=== PATIENT | male | born 1980 | race Caucasian/White ===

== ENCOUNTER → 2017-09-30 | Outpatient (CLI) | payer BC ==
[2017-09-30 18:28] LABS: HEMATOCRIT 43.3 % (42.0-52.0); HEMOGLOBIN 14.3 g/dL (13.5-18.0); MEAN CELL VOLUME 85 fl (78-100); MEAN CORPUSCULAR HEMOGLOBIN 28 pg (27-31); MEAN CORPUSCULAR HGB CONC 33 g/dL (33-37); MEAN PLATELET VOLUME 9.7 fl (7.4-10.4); PLATELET COUNT 191 K/mm3 (130-400); RED BLOOD COUNT 5.07 M/mm3 (4.20-5.60); RED CELL DISTRIBUTION WIDTH 15.1 % (11.5-14.5); WHITE BLOOD COUNT 10.4 K/mm3 (4.8-10.8)
[2017-09-30 18:36] LABS: ALBUMIN 4.6 g/dL (3.5-5.0); BUN/CREATININE RATIO 16.8 (6.0-26.0); CALCIUM 9.2 mg/dL (8.4-10.2); POTASSIUM 3.7 mmol/L (3.6-5.0); TOTAL BILIRUBIN 0.5 mg/dL (0.2-1.3); TOTAL PROTEIN 7.8 g/dL (6.3-8.2)
[2017-09-30 18:48] LABS: BAND 3 % (0-10); LYMPHOCYTE 15 % (20-51); MONOCYTE 1 % (3-10); NEUTROPHILS 81 % (42-75)
== END ==
LOC: LAB 17:19
PROVIDERS: Physician Assistant
DX: J18.9 Pneumonia, unspecified organism (principal); R05 Cough

== ENCOUNTER → 2018-10-23 | Outpatient (CLI) | payer BC | LOC: LAB 08:29 | DX: L02.423 Furuncle of right upper limb (principal) ==

== ENCOUNTER → 2022-04-29 | Outpatient (CLI) | payer BC | LOC: LAB 07:58 | DX: Z20.822 Contact with and (suspected) exposure to COVID-19 (principal) ==